=== PATIENT | female | born 1965 | race American Indian/Alaskan Native ===

== ENCOUNTER 2018-07-31 16:32 | Outpatient (CLI) | payer OTHER | END 2018-07-31 16:33 | disposition home or self-care (01) | LOC: RAD 16:33 ==

== ENCOUNTER 2018-09-13 10:55 | Outpatient (CLI) | payer OTHER | END 2018-09-13 10:56 | disposition home or self-care (01) | LOC: LAB 10:55 ==

== ENCOUNTER 2018-11-01 10:28 | Outpatient (CLI) | payer OTHER | END 2018-11-01 10:29 | disposition home or self-care (01) | LOC: RAD 10:28 | DX: Z12.31 Encounter for screening mammogram for malignant neoplasm of breast (principal) ==